=== PATIENT | female | born 1945 | race Caucasian/White ===

== ENCOUNTER 2021-03-14 13:39 | Inpatient (IN) | payer MEDICARE, MEDICAID ==
[~2021-03-14 13:39] MED LIST: Iopamidol-370 76% 500 ML 1 ML ONE
[2021-03-14 13:56] LABS: #Basophils 0.2 thou/uL (0.0-0.2); #Eosinphils 0.1 thou/uL (0.0-0.7); #Lymphocytes 0.2 thou/uL (1.20-3.40); #Monocytes 0.4 thou/uL (0.11-0.59); #Neutrophils 11.3 thou/uL (1.40-6.50); %Basophils 1.4 % (0.0-1.0); %Eosinophils 0.5 % (0.0-10.0); %Lymphocytes 1.7 % (21.0-51.0); %Monocytes 3.4 % (0.0-10.0); Hemoglobin 8.7 g/dL (12.0-16.0); Mean Corpuscular Hemoglobin 30.1 pg (27.0-31.0); Mean Corpuscular Volume 88.5 fL (78.0-98.0); Mean Platelet Volume 7.2 fL (7.4-10.4); Platelet Count 484 thou/uL (130-400); Red Blood Cell (RBC) Count 2.89 mill/uL (4.20-5.40); White Blood Cell (WBC) Count 12.2 thou/uL (4.8-10.8)
[2021-03-14 14:09] LABS: INR-International Normal Ratio 1.2; Prothrombin Time 14.8 sec (12.0-14.7)
[2021-03-14 14:10] LABS: PTT 41.5 sec (22.9-36.1)
[2021-03-14 14:13] LABS: ALT (SGPT) 37 U/L (8-55); AST (SGOT) 25 U/L (5-34); Albumin 2.8 g/dL (3.4-4.8); Alkaline Phosphatase 196 U/L (40-110); Anion Gap 12 mmol/L (10-20); BUN (Urea Nitrogen) 25 mg/dL (9.8-20.1); Bilirubin, Total 0.4 mg/dL (0.2-1.2); CK (CPK) 16 U/L (29-168); Calc. Creatinine Clearance 0 mL/min (70-130); Calcium 8.3 mg/dL (7.8-10.44); Carbon Dioxide 28 mmol/L (23-31); Chloride 95 mmol/L (98-107); Globulin 3.9 g/dL (2.4-3.5); Glucose 140 mg/dL (83-110); Protein, Total 6.7 g/dL (5.8-8.1); Sodium 130 mmol/L (136-145)
[2021-03-14 14:16] LABS: Actual Bicarbonate (HCO3a) 24.1 mEq/L (22-28); Analyzer IN Cardio ER; CO2 Tension 32.2 mmHg (35.0-45.0); Calcium, Ionized (arterial) 1.14 mmol/L (1.12-1.30); Carboxyhemoglobin (COHb) 0.3 gm% (0.0-3.0); Hemoglobin (Hb) 8.3 g/dL (12.0-16.0); O2 Tension (PaO2), arterial 71.9 mmHg (> 70.0); pH, Arterial 7.49 (7.35-7.45)
[2021-03-14] MEDS ORDERED: Fentanyl 100 MCG/2 ML VIAL ONE (14:18)
[2021-03-14] MEDS ORDERED: Fentanyl CADD 100 ML IV SCH ×2 (14:30→18:00)
[2021-03-14 14:38] LABS: Puncture Site RRA
[2021-03-14] MEDS ORDERED: EPINEPHrine 1 MG/10 ML Abboject SYRINGE ONE (14:46)
[2021-03-14] MEDS ORDERED: Norepinephrine 8 MG/0.9% NS 250 ML ONE (14:47)
[2021-03-14] MEDS ORDERED: Acetaminophen 650 MG Suppository ONE (14:58)
[2021-03-14] MEDS ORDERED: Aspirin 300 MG Suppository ONE (15:09)
[2021-03-14 15:39] LABS: SARS-CoV-2 NAA Rapid Test Not Detected (NotDetected)
[2021-03-14] MEDS ORDERED: Acetaminophen 650 MG Suppository PR PRN (16:01)
[2021-03-14] MEDS ORDERED: Ondansetron ODT 4 MG TAB PO PRN (16:01)
[2021-03-14] MEDS ORDERED: Calcium Carbonate 500 MG ChewTAB PO PRN (16:01)
[2021-03-14] MEDS ORDERED: Ondansetron PF 4 MG/2 ML Vial IVP PRN (16:01)
[2021-03-14] MEDS ORDERED: Electrolyte Replacement Protocol 1 EACH IVPB PRN (16:03)
[2021-03-14] MEDS ORDERED: Acetaminophen 325 MG/10.15 ML UDCUP PO PRN (16:03)
[2021-03-14] MEDS ORDERED: Nitroglycerin 0.4 MG TAB (25 Tab Bottle) SL PRN (16:14)
[2021-03-14] MEDS ORDERED: Dextrose 5 % And 0.9 % NaCl 1,000 ML IV SCH ×2 (16:15→16:28)
[2021-03-14] MEDS ORDERED: Meropenem 1 GM in Sodium Chloride 0.9% 100 ML IVPB SCH (16:15)
[2021-03-14] MEDS ORDERED: Vancomycin 1 GM in Premix Bag 1 BAG IVPB SCH (16:15)
[2021-03-14] MEDS ORDERED: cefTRIAXone\\ROCEPHIN 2 GM VIAL ONE (16:17)
[2021-03-14 16:20] LABS: Hemoglobin 8.3 g/dL (12.0-16.0); Mean Corpuscular Hemoglobin 29.7 pg (27.0-31.0); Mean Corpuscular Volume 89.8 fL (78.0-98.0); Mean Platelet Volume 7.3 fL (7.4-10.4); Platelet Count 511 thou/uL (130-400); RBC Distribution Width 13.1 % (11.5-14.5); Red Blood Cell (RBC) Count 2.81 mill/uL (4.20-5.40); White Blood Cell (WBC) Count 20.2 thou/uL (4.8-10.8)
[2021-03-14 16:29] LABS: INR-International Normal Ratio 1.2
[2021-03-14 16:30] LABS: PTT 47.5 sec (22.9-36.1)
[2021-03-14 16:34] LABS: Band 28 % (5-11); Lymphocytes 2 % (21-51); MDiff Complete? YES; Monocytes 1 % (0-10); Neutrophil 69 % (42-75); Platelet Morphology Comment Appears Increased; RBC Morphology Normal
[2021-03-14 16:40] LABS: Phosphorus 3.1 mg/dL (2.3-4.7)
[2021-03-14 16:44] LABS: ALT (SGPT) 49 U/L (8-55); AST (SGOT) 45 U/L (5-34); Albumin 2.6 g/dL (3.4-4.8); Alkaline Phosphatase 197 U/L (40-110); Anion Gap 10 mmol/L (10-20); BUN (Urea Nitrogen) 27 mg/dL (9.8-20.1); Bilirubin, Total 0.7 mg/dL (0.2-1.2); Calc. Creatinine Clearance 0 mL/min (70-130); Calcium 8.4 mg/dL (7.8-10.44); Carbon Dioxide 29 mmol/L (23-31); Chloride 94 mmol/L (98-107); Glucose 189 mg/dL (83-110); Magnesium 2.2 mg/dL (1.6-2.6); Protein, Total 6.6 g/dL (5.8-8.1); Sodium 128 mmol/L (136-145)
[2021-03-14] MEDS ORDERED: VANCOMYCIN 2 GRAM/400 ML BAG 2 GM in Premix Bag 1 BAG IVPB SCH (17:00)
[2021-03-14] MEDS ORDERED: Propofol 1,000 MG/100 ML VIAL IV PRN (18:00)
[2021-03-14] MEDS ORDERED: Morphine 2 MG/ML VIAL SLOW IVP PRN (18:00)
[2021-03-14] MEDS ORDERED: fentaNYL Citrate/PF 2,000 MCG in Sodium Chloride 0.9% 60 ML IV SCH (18:00)
[2021-03-14] MEDS ORDERED: Propofol BOLUS 1,000 MG/100 ML VIAL IV PRN (18:00)
[2021-03-14] MEDS ORDERED: Fentanyl BOLUS 250 ML IVPB PRN (18:00)
[2021-03-14] MEDS: Norepinephrine 8 MG/0.9% NS 250 ML IVPB PRN (18:25)
[2021-03-14] MEDS: Dextrose 5 % And 0.9 % NaCl 1,000 ML IV SCH (18:25)
[2021-03-14] MEDS: levETIRAcetam in NS 500 MG in Premix Bag 1 BAG IVPB SCH (18:25)
[2021-03-14 19:38] LABS: Troponin I 0.122 ng/mL (< 0.028)
[2021-03-14] MEDS ORDERED: Famotidine 20 MG TAB PO SCH (21:00)
[2021-03-14] MEDS: Famotidine/PF 20 mg/2ml Vial SLOW IVP SCH (21:01)
[2021-03-14] MEDS: MEROPENEM 1 GM/50 ML 1 GM in Premix Bag 1 BAG IVPB SCH (21:03)
[2021-03-14] MEDS: Acetaminophen 325 MG TAB PO PRN (21:21)
[2021-03-14] MEDS: Insulin Regular 300 UNITS/3 ML VIAL SC PRN (22:30)
[2021-03-14 23:02] LABS: Anion Gap 14 mmol/L (10-20); BUN (Urea Nitrogen) 29 mg/dL (9.8-20.1); Calc. Creatinine Clearance 56 mL/min (70-130); Calcium 8.3 mg/dL (7.8-10.44); Carbon Dioxide 24 mmol/L (23-31); Chloride 94 mmol/L (98-107); Glucose 163 mg/dL (83-110); Potassium 4.7 mmol/L (3.5-5.1); Sodium 127 mmol/L (136-145)
[2021-03-14 23:07] LABS: Troponin I 0.172 ng/mL (< 0.028)
[2021-03-14 23:09] LABS: Bilirubin Negative (Negative); Blood, Urine Large (Negative); Glucose, Urine (Dipstick) Negative (Negative); Ketone, Urine Negative (Negative); Leukocyte Moderate (Negative); Nitrite Negative (Negative); Protein, Urine (Dipstick) 30 mg/dL (Neg-Trace); Urobilinogen 0.2 mg/dL (Less than 2)
[2021-03-14 23:15] LABS: Clarity Cloudy (Clear); Specific Gravity, Urine 1.044 (1.002-1.036)
[2021-03-14 23:22] LABS: Bacteria/HPF 2+ HPF (None Seen); RBC/HPF Greater than 50 HPF (0-3); Squamous Epithelial 0-3 HPF (0-3); WBC/HPF Greater than 50 HPF (0-3)
[2021-03-15 04:11] LABS: #Lymphocytes 0.4 thou/uL (1.20-3.40); #Monocytes 0.5 thou/uL (0.11-0.59); #Neutrophils 14.4 thou/uL (1.40-6.50); %Eosinophils 0.2 % (0.0-10.0); %Lymphocytes 2.4 % (21.0-51.0); %Monocytes 3.1 % (0.0-10.0); %Neutrophils 94.3 % (42.0-75.0); Hemoglobin 7.8 g/dL (12.0-16.0); Mean Corpuscular HGB CONC 34.1 g/dL (32.0-36.0); Mean Corpuscular Volume 87.8 fL (78.0-98.0); Mean Platelet Volume 7.3 fL (7.4-10.4); Platelet Count 419 thou/uL (130-400); RBC Distribution Width 12.9 % (11.5-14.5); White Blood Cell (WBC) Count 15.2 thou/uL (4.8-10.8)
[2021-03-15] MEDS: Insulin Regular 300 UNITS/3 ML VIAL SC PRN ×4 (04:15→22:15)
[2021-03-15 04:34] LABS: Phosphorus 2.9 mg/dL (2.3-4.7)
[2021-03-15 04:36] LABS: Anion Gap 13 mmol/L (10-20); BUN (Urea Nitrogen) 31 mg/dL (9.8-20.1); Carbon Dioxide 26 mmol/L (23-31); Chloride 94 mmol/L (98-107); Potassium 4.6 mmol/L (3.5-5.1); Sodium 128 mmol/L (136-145)
[2021-03-15 04:37] LABS: ALT (SGPT) 38 U/L (8-55); AST (SGOT) 30 U/L (5-34); Albumin 2.6 g/dL (3.4-4.8); Alkaline Phosphatase 174 U/L (40-110); Bilirubin, Total 0.4 mg/dL (0.2-1.2); Calc. Creatinine Clearance 49 mL/min (70-130); Calcium 8.6 mg/dL (7.8-10.44); Globulin 3.6 g/dL (2.4-3.5); Glucose 144 mg/dL (83-110); Magnesium 2.2 mg/dL (1.6-2.6); Protein, Total 6.2 g/dL (5.8-8.1)
[2021-03-15] MEDS: Dextrose 5 % And 0.9 % NaCl 1,000 ML IV SCH (04:41)
[2021-03-15] MEDS: levETIRAcetam in NS 500 MG in Premix Bag 1 BAG IVPB SCH ×2 (04:46→18:17)
[2021-03-15] MEDS: VANCOMYCIN 1.25 GM/250 ML BAG 1.25 GM in Premix Bag 1 BAG IVPB SCH ×2 (05:15→17:15)
[2021-03-15] MEDS: MEROPENEM 1 GM/50 ML 1 GM in Premix Bag 1 BAG IVPB SCH ×3 (05:32→21:49)
[2021-03-15] MEDS: Lorazepam 2 MG/ML VIAL SLOW IVP PRN ×3 (08:35→19:55)
[2021-03-15] MEDS: Acetaminophen 325 MG TAB PO PRN (08:45)
[2021-03-15] MEDS: Famotidine/PF 20 mg/2ml Vial SLOW IVP SCH ×2 (08:45→20:18)
[2021-03-15] MEDS: Enoxaparin Sodium 40 MG/0.4 ML SYRINGE SC SCH (08:45)
[2021-03-15] MEDS: Aspirin Chewable 81 MG TAB PER TUBE SCH (08:45)
[2021-03-15] MEDS: Norepinephrine 8 MG/0.9% NS 250 ML IVPB PRN (20:18)
[2021-03-16] MEDS: Vancomycin HCl 1.25 GM in Sodium Chloride 0.9% 250 ML 250 ML IVPB SCH ×2 (04:25→05:43)
[2021-03-16 04:54] LABS: #Lymphocytes 0.6 thou/uL (1.20-3.40); #Monocytes 0.5 thou/uL (0.11-0.59); #Neutrophils 9.5 thou/uL (1.40-6.50); %Basophils 0.1 % (0.0-1.0); %Eosinophils 0.2 % (0.0-10.0); %Lymphocytes 5.7 % (21.0-51.0); %Monocytes 4.2 % (0.0-10.0); %Neutrophils 89.8 % (42.0-75.0); Hemoglobin 7.1 g/dL (12.0-16.0); Mean Corpuscular HGB CONC 33.7 g/dL (32.0-36.0); Mean Corpuscular Hemoglobin 29.5 pg (27.0-31.0); Mean Corpuscular Volume 87.6 fL (78.0-98.0); Mean Platelet Volume 7.5 fL (7.4-10.4); Platelet Count 303 thou/uL (130-400); RBC Distribution Width 12.9 % (11.5-14.5); White Blood Cell (WBC) Count 10.5 thou/uL (4.8-10.8)
[2021-03-16] MEDS: Insulin Regular 300 UNITS/3 ML VIAL SC PRN ×3 (05:00→18:17)
[2021-03-16 05:13] LABS: Phosphorus 2.6 mg/dL (2.3-4.7)
[2021-03-16 05:16] LABS: Chloride 98 mmol/L (98-107); Potassium 4.1 mmol/L (3.5-5.1); Sodium 132 mmol/L (136-145)
[2021-03-16 05:17] LABS: Vancomycin, Trough 48.5 ug/mL
[2021-03-16 05:18] LABS: Albumin 2.4 g/dL (3.4-4.8)
[2021-03-16 05:20] LABS: Calcium 8.1 mg/dL (7.8-10.44)
[2021-03-16 05:21] LABS: Globulin 3.5 g/dL (2.4-3.5); Glucose 167 mg/dL (83-110); Protein, Total 5.9 g/dL (5.8-8.1)
[2021-03-16 05:22] LABS: Anion Gap 12 mmol/L (10-20); Carbon Dioxide 25 mmol/L (23-31)
[2021-03-16 05:23] LABS: Bilirubin, Total 0.3 mg/dL (0.2-1.2)
[2021-03-16 05:24] LABS: Alkaline Phosphatase 160 U/L (40-110); Calc. Creatinine Clearance 35 mL/min (70-130)
[2021-03-16 05:25] LABS: BUN (Urea Nitrogen) 42 mg/dL (9.8-20.1)
[2021-03-16 05:26] LABS: AST (SGOT) 38 U/L (5-34); Magnesium 2.3 mg/dL (1.6-2.6)
[2021-03-16 05:27] LABS: ALT (SGPT) 39 U/L (8-55)
[2021-03-16] MEDS ORDERED: Vancomycin HCl 1.25 GM in Sodium Chloride 0.9% 250 ML 250 ML IVPB SCH (05:30)
[2021-03-16] MEDS: MEROPENEM 1 GM/50 ML 1 GM in Premix Bag 1 BAG IVPB SCH (05:44)
[2021-03-16] MEDS: levETIRAcetam in NS 500 MG in Premix Bag 1 BAG IVPB SCH ×2 (05:44→17:09)
[2021-03-16 06:52] LABS: Actual Bicarbonate (HCO3a) 24.1 mEq/L (22-28); Base Excess (BEa) 0.9 mEq/L (-2.0 to +3.0); Calcium, Ionized (arterial) 1.11 mmol/L (1.12-1.30); Carboxyhemoglobin (COHb) 0.9 gm% (0.0-3.0); Hemoglobin (Hb) 7.5 g/dL (12.0-16.0); O2 Tension (PaO2), arterial 70.2 mmHg (> 70.0); pH, Arterial 7.49 (7.35-7.45)
[2021-03-16 06:56] LABS: Puncture Site RRA
[2021-03-16] MEDS: Acetaminophen 325 MG TAB PO PRN ×2 (07:15→16:19)
[2021-03-16] MEDS: Aspirin Chewable 81 MG TAB PER TUBE SCH (09:51)
[2021-03-16] MEDS: Enoxaparin Sodium 40 MG/0.4 ML SYRINGE SC SCH (09:51)
[2021-03-16] MEDS: Famotidine/PF 20 mg/2ml Vial SLOW IVP SCH ×2 (09:51→16:20)
[2021-03-16] MEDS: Enoxaparin Sodium 30 MG/0.3 ML SYRINGE SC SCH (09:54)
[2021-03-16] MEDS: Lorazepam 2 MG/ML VIAL SLOW IVP PRN ×2 (13:20→23:55)
[2021-03-16] MEDS: Meropenem 500 MG in Sodium Chloride 0.9% 100 ML IVPB SCH (18:35)
[2021-03-17 00:52] LABS: Vancomycin, Random 31.6 ug/mL (See Comment)
[2021-03-17 04:15] LABS: #Eosinphils 0.1 thou/uL (0.0-0.7); #Lymphocytes 0.5 thou/uL (1.20-3.40); #Monocytes 0.4 thou/uL (0.11-0.59); #Neutrophils 9.4 thou/uL (1.40-6.50); %Basophils 0.2 % (0.0-1.0); %Eosinophils 0.5 % (0.0-10.0); %Lymphocytes 4.6 % (21.0-51.0); %Monocytes 4.1 % (0.0-10.0); %Neutrophils 90.6 % (42.0-75.0); Mean Corpuscular HGB CONC 32.8 g/dL (32.0-36.0); Mean Corpuscular Volume 88.5 fL (78.0-98.0); Mean Platelet Volume 8.1 fL (7.4-10.4); Platelet Count 251 thou/uL (130-400); RBC Distribution Width 13.4 % (11.5-14.5); Red Blood Cell (RBC) Count 2.42 mill/uL (4.20-5.40); White Blood Cell (WBC) Count 10.4 thou/uL (4.8-10.8)
[2021-03-17 04:36] LABS: ALT (SGPT) 77 U/L (8-55); AST (SGOT) 106 U/L (5-34); Albumin 2.4 g/dL (3.4-4.8); Alkaline Phosphatase 162 U/L (40-110); Anion Gap 13 mmol/L (10-20); BUN (Urea Nitrogen) 51 mg/dL (9.8-20.1); Bilirubin, Total 0.3 mg/dL (0.2-1.2); Calc. Creatinine Clearance 30 mL/min (70-130); Calcium 8.5 mg/dL (7.8-10.44); Carbon Dioxide 24 mmol/L (23-31); Chloride 98 mmol/L (98-107); Globulin 3.5 g/dL (2.4-3.5); Glucose 163 mg/dL (83-110); Magnesium 2.4 mg/dL (1.6-2.6); Protein, Total 5.9 g/dL (5.8-8.1); Sodium 131 mmol/L (136-145)
[2021-03-17 04:39] LABS: Phosphorus 3.8 mg/dL (2.3-4.7)
[2021-03-17] MEDS: levETIRAcetam in NS 500 MG in Premix Bag 1 BAG IVPB SCH ×2 (05:34→17:45)
[2021-03-17] MEDS: Meropenem 500 MG in Sodium Chloride 0.9% 100 ML IVPB SCH ×2 (05:34→17:57)
[2021-03-17] MEDS: Insulin Regular 300 UNITS/3 ML VIAL SC PRN ×2 (05:55→09:53)
[2021-03-17 07:30] LABS: Actual Bicarbonate (HCO3a) 24.3 mEq/L (22-28); Base Excess (BEa) 0.2 mEq/L (-2.0 to +3.0); CO2 Tension 36.7 mmHg (35.0-45.0); Calcium, Ionized (arterial) 1.16 mmol/L (1.12-1.30); Carboxyhemoglobin (COHb) 0.9 gm% (0.0-3.0); Hemoglobin (Hb) 7.1 g/dL (12.0-16.0); O2 Tension (PaO2), arterial 66.7 mmHg (> 70.0); Potassium - ABG Lab 4.02 mmol/L (3.70-5.30); pH, Arterial 7.44 (7.35-7.45)
[2021-03-17 07:32] LABS: ALV-art Gradient 101.325 mmHg (0-20); Puncture Site RRA
[2021-03-17] MEDS: Lorazepam 2 MG/ML VIAL SLOW IVP PRN (07:44)
[2021-03-17] MEDS: Enoxaparin Sodium 30 MG/0.3 ML SYRINGE SC SCH (07:45)
[2021-03-17] MEDS: Aspirin Chewable 81 MG TAB PER TUBE SCH (07:45)
[2021-03-17] MEDS ORDERED: Famotidine 20 MG TAB PER TUBE SCH (10:00)
[2021-03-17] MEDS: Famotidine/PF 20 mg/2ml Vial SLOW IVP SCH (19:46)
[2021-03-17 21:56] LABS: Vancomycin, Random 24.7 ug/mL (See Comment)
[2021-03-18 04:23] LABS: #Eosinphils 0.2 thou/uL (0.0-0.7); #Lymphocytes 0.6 thou/uL (1.20-3.40); #Monocytes 0.5 thou/uL (0.11-0.59); #Neutrophils 7.3 thou/uL (1.40-6.50); %Eosinophils 1.8 % (0.0-10.0); %Lymphocytes 6.6 % (21.0-51.0); %Monocytes 5.9 % (0.0-10.0); %Neutrophils 85.7 % (42.0-75.0); Hemoglobin 7.6 g/dL (12.0-16.0); Mean Corpuscular Hemoglobin 29.9 pg (27.0-31.0); Mean Platelet Volume 8.2 fL (7.4-10.4); Platelet Count 244 thou/uL (130-400); RBC Distribution Width 13.2 % (11.5-14.5); Red Blood Cell (RBC) Count 2.54 mill/uL (4.20-5.40); White Blood Cell (WBC) Count 8.5 thou/uL (4.8-10.8)
[2021-03-18 04:42] LABS: ALT (SGPT) 111 U/L (8-55); AST (SGOT) 131 U/L (5-34); Albumin 2.3 g/dL (3.4-4.8); Alkaline Phosphatase 164 U/L (40-110); Anion Gap 13 mmol/L (10-20); BUN (Urea Nitrogen) 52 mg/dL (9.8-20.1); Bilirubin, Total 0.3 mg/dL (0.2-1.2); Calc. Creatinine Clearance 35 mL/min (70-130); Calcium 8.5 mg/dL (7.8-10.44); Carbon Dioxide 24 mmol/L (23-31); Chloride 102 mmol/L (98-107); Globulin 3.6 g/dL (2.4-3.5); Glucose 134 mg/dL (83-110); Magnesium 2.5 mg/dL (1.6-2.6); Phosphorus 3.8 mg/dL (2.3-4.7); Potassium 4.1 mmol/L (3.5-5.1); Protein, Total 5.9 g/dL (5.8-8.1); Sodium 135 mmol/L (136-145)
[2021-03-18] MEDS: Lorazepam 2 MG/ML VIAL SLOW IVP PRN (04:58)
[2021-03-18] MEDS: levETIRAcetam in NS 500 MG in Premix Bag 1 BAG IVPB SCH ×2 (04:58→17:55)
[2021-03-18] MEDS: Meropenem 500 MG in Sodium Chloride 0.9% 100 ML IVPB SCH ×2 (05:41→17:55)
[2021-03-18] MEDS: Enoxaparin Sodium 30 MG/0.3 ML SYRINGE SC SCH (08:53)
[2021-03-18] MEDS: Famotidine 20 MG TAB PER TUBE SCH (08:53)
[2021-03-18] MEDS: Aspirin Chewable 81 MG TAB PER TUBE SCH (08:53)
[2021-03-18] MEDS: Acetaminophen 325 MG TAB PO PRN (15:39)
[2021-03-18] MEDS: Acetaminophen 650 MG/20.3 ML UDCUP PO PRN (23:29)
[2021-03-19] MEDS: levETIRAcetam in NS 500 MG in Premix Bag 1 BAG IVPB SCH ×2 (05:31→17:27)
[2021-03-19] MEDS: Meropenem 500 MG in Sodium Chloride 0.9% 100 ML IVPB SCH ×2 (05:48→18:45)
[2021-03-19 06:12] LABS: #Lymphocytes 0.5 thou/uL (1.20-3.40); #Monocytes 0.6 thou/uL (0.11-0.59); #Neutrophils 11.3 thou/uL (1.40-6.50); %Basophils 0.1 % (0.0-1.0); %Eosinophils 0.2 % (0.0-10.0); %Lymphocytes 4.1 % (21.0-51.0); %Monocytes 5.1 % (0.0-10.0); %Neutrophils 90.6 % (42.0-75.0); Hemoglobin 7.8 g/dL (12.0-16.0); Mean Corpuscular HGB CONC 32.8 g/dL (32.0-36.0); Mean Corpuscular Hemoglobin 28.8 pg (27.0-31.0); Mean Corpuscular Volume 87.7 fL (78.0-98.0); Mean Platelet Volume 8.5 fL (7.4-10.4); Platelet Count 268 thou/uL (130-400); RBC Distribution Width 13.8 % (11.5-14.5); Red Blood Cell (RBC) Count 2.69 mill/uL (4.20-5.40); White Blood Cell (WBC) Count 12.5 thou/uL (4.8-10.8)
[2021-03-19 06:38] LABS: ALT (SGPT) 102 U/L (8-55); AST (SGOT) 91 U/L (5-34); Albumin 2.4 g/dL (3.4-4.8); Alkaline Phosphatase 167 U/L (40-110); Anion Gap 13 mmol/L (10-20); BUN (Urea Nitrogen) 47 mg/dL (9.8-20.1); Bilirubin, Total 0.5 mg/dL (0.2-1.2); Calc. Creatinine Clearance 43 mL/min (70-130); Calcium 8.5 mg/dL (7.8-10.44); Carbon Dioxide 23 mmol/L (23-31); Chloride 106 mmol/L (98-107); Globulin 3.6 g/dL (2.4-3.5); Glucose 164 mg/dL (83-110); Magnesium 2.5 mg/dL (1.6-2.6); Potassium 4.2 mmol/L (3.5-5.1); Sodium 138 mmol/L (136-145)
[2021-03-19] MEDS: Aspirin Chewable 81 MG TAB PER TUBE SCH (09:27)
[2021-03-19] MEDS: Enoxaparin Sodium 30 MG/0.3 ML SYRINGE SC SCH (09:27)
[2021-03-19] MEDS: Famotidine 20 MG TAB PER TUBE SCH (09:27)
[2021-03-19] MEDS: Acetaminophen 650 MG/20.3 ML UDCUP PO PRN ×2 (10:06→15:03)
[2021-03-19 10:20] LABS: Vancomycin, Random 18.4 ug/mL (See Comment)
[2021-03-19 11:31] LABS: Actual Bicarbonate (HCO3a) 25.2 mEq/L (22-28); Base Excess (BEa) 1.3 mEq/L (-2.0 to +3.0); CO2 Tension 36.3 mmHg (35.0-45.0); Calcium, Ionized (arterial) 1.19 mmol/L (1.12-1.30); Carboxyhemoglobin (COHb) 1.3 gm% (0.0-3.0); Hemoglobin (Hb) 6.3 g/dL (12.0-16.0); O2 Tension (PaO2), arterial 75.2 mmHg (> 70.0); Potassium - ABG Lab 4.11 mmol/L (3.70-5.30); pH, Arterial 7.46 (7.35-7.45)
[2021-03-19 11:42] LABS: ALV-art Gradient 79.065 mmHg (0-20); Puncture Site RRA
[2021-03-19] MEDS ORDERED: Vancomycin 1 GM in Premix Bag 1 BAG IVPB SCH (11:45)
[2021-03-20] MEDS: levETIRAcetam in NS 500 MG in Premix Bag 1 BAG IVPB SCH (05:05)
[2021-03-20] MEDS: Acetaminophen 650 MG/20.3 ML UDCUP PO PRN ×2 (05:05→22:00)
[2021-03-20] MEDS: Meropenem 500 MG in Sodium Chloride 0.9% 100 ML IVPB SCH ×2 (05:42→18:25)
[2021-03-20] MEDS: Famotidine 20 MG TAB PER TUBE SCH (08:45)
[2021-03-20] MEDS: Enoxaparin Sodium 30 MG/0.3 ML SYRINGE SC SCH (08:45)
[2021-03-20] MEDS: Aspirin Chewable 81 MG TAB PER TUBE SCH (08:45)
[2021-03-20] MEDS ORDERED: Furosemide 100 MG/10 ML VIAL SLOW IVP SCH (11:00)
[2021-03-20 11:08] LABS: Vancomycin, Random 19.1 ug/mL (See Comment)
[2021-03-20] MEDS ORDERED: Vancomycin 1 GM in Premix Bag 1 BAG IVPB SCH (12:00)
[2021-03-20 18:35] LABS: Clarity Hazy (Clear)
[2021-03-20 18:36] LABS: Bilirubin Negative (Negative); Glucose, Urine (Dipstick) 100 mg/dL (Negative); Ketone, Urine Negative (Negative); Leukocyte Small Leu/uL (Negative); Nitrite Negative (Negative); Protein, Urine (Dipstick) 30 mg/dL (Neg-Trace); Urobilinogen 0.2 mg/dL (Less than 2); pH, Urine 5.5 (5.0-9.0)
[2021-03-20 18:37] LABS: Blood, Urine Moderate (Negative)
[2021-03-20 18:38] LABS: Bacteria/HPF 1+ HPF (None Seen)
[2021-03-20] MEDS: Carvedilol 6.25 MG TAB PO SCH (22:00)
[2021-03-20] MEDS: Furosemide 40 MG TAB PO SCH (22:00)
[2021-03-20] MEDS: OXcarbazepine 300 MG TAB PO SCH (22:01)
[2021-03-21] MEDS: Furosemide 40 MG TAB PO SCH ×2 (09:13→20:47)
[2021-03-21] MEDS: Aspirin Chewable 81 MG TAB PER TUBE SCH (09:13)
[2021-03-21] MEDS: Famotidine 20 MG TAB PER TUBE SCH (09:13)
[2021-03-21] MEDS: Carvedilol 6.25 MG TAB PO SCH ×2 (09:14→20:47)
[2021-03-21] MEDS: Bisacodyl 10 MG SUPP PR SCH (09:14)
[2021-03-21] MEDS: Enoxaparin Sodium 30 MG/0.3 ML SYRINGE SC SCH (09:14)
[2021-03-21] MEDS: Meropenem 500 MG in Sodium Chloride 0.9% 100 ML IVPB SCH ×2 (09:14→17:12)
[2021-03-21 10:40] LABS: Vancomycin, Trough 15.8 ug/mL
[2021-03-21] MEDS: Acetaminophen 650 MG/20.3 ML UDCUP PO PRN ×2 (10:46→20:57)
[2021-03-21 10:47] LABS: #Basophils 0.1 thou/uL (0.0-0.2); #Lymphocytes 0.3 thou/uL (1.20-3.40); #Monocytes 0.5 thou/uL (0.11-0.59); #Neutrophils 10.8 thou/uL (1.40-6.50); %Basophils 0.9 % (0.0-1.0); %Eosinophils 0.1 % (0.0-10.0); %Lymphocytes 2.8 % (21.0-51.0); %Monocytes 4.1 % (0.0-10.0); %Neutrophils 92.1 % (42.0-75.0); Hemoglobin 8.2 g/dL (12.0-16.0); Mean Corpuscular Hemoglobin 29.2 pg (27.0-31.0); Mean Corpuscular Volume 88.5 fL (78.0-98.0); Mean Platelet Volume 9.6 fL (7.4-10.4); Platelet Count 202 thou/uL (130-400); RBC Distribution Width 14.5 % (11.5-14.5); White Blood Cell (WBC) Count 11.7 thou/uL (4.8-10.8)
[2021-03-21 11:06] LABS: Anion Gap 13 mmol/L (10-20); BUN (Urea Nitrogen) 51 mg/dL (9.8-20.1); Calc. Creatinine Clearance 51 mL/min (70-130); Calcium 8.9 mg/dL (7.8-10.44); Carbon Dioxide 25 mmol/L (23-31); Chloride 111 mmol/L (98-107); Glucose 215 mg/dL (83-110); Sodium 145 mmol/L (136-145)
[2021-03-21] MEDS ORDERED: Vancomycin HCl 750 MG in Sodium Chloride 0.9% 250 ML 250 ML IVPB SCH (11:15)
[2021-03-21] MEDS: Insulin Regular 300 UNITS/3 ML VIAL SC PRN (13:24)
[2021-03-21 13:58] LABS: Bacteria/HPF 4+ HPF (None Seen); Bilirubin Negative (Negative); Blood, Urine 3+ (Negative); Clarity Extra Turbid (Clear); Glucose, Urine (Dipstick) Normal (Negative); Ketone, Urine Negative (Negative); Leukocyte 500 Leu/uL (Negative); Nitrite Negative (Negative); Protein, Urine (Dipstick) 100 mg/dL (Neg-Trace); RBC/HPF Greater than 50 HPF (0-3); Renal Epithelial 0-3 HPF (None Seen); Specific Gravity, Urine 1.016 (1.002-1.036); Squamous Epithelial None Seen HPF (0-3); Urobilinogen Normal mg/dL (Less than 2); WBC/HPF Greater than 50 HPF (0-3)
[2021-03-21 14:01] LABS: Urine Culture Reflex Yes Yes
[2021-03-21] MEDS: Furosemide 40 MG/4 ML VIAL SLOW IVP SCH (14:33)
[2021-03-21] MEDS: OXcarbazepine 300 MG TAB PO SCH (20:47)
[2021-03-21 23:19] LABS: SARS-CoV-2 PCR by NAA Not Detected (NotDetected)
[2021-03-22] MEDS: Meropenem 500 MG in Sodium Chloride 0.9% 100 ML IVPB SCH (05:17)
[2021-03-22] MEDS: Furosemide 40 MG/4 ML VIAL SLOW IVP SCH ×3 (05:18→15:58)
[2021-03-22 05:47] LABS: #Eosinphils 0.1 thou/uL (0.0-0.7); #Lymphocytes 0.8 thou/uL (1.20-3.40); #Monocytes 0.8 thou/uL (0.11-0.59); #Neutrophils 7.4 thou/uL (1.40-6.50); %Basophils 0.2 % (0.0-1.0); %Eosinophils 0.9 % (0.0-10.0); %Monocytes 8.9 % (0.0-10.0); Hemoglobin 6.9 g/dL (12.0-16.0); Mean Corpuscular HGB CONC 31.7 g/dL (32.0-36.0); Mean Corpuscular Hemoglobin 28.2 pg (27.0-31.0); Mean Corpuscular Volume 88.9 fL (78.0-98.0); Mean Platelet Volume 9.5 fL (7.4-10.4); Platelet Count 198 thou/uL (130-400); RBC Distribution Width 14.3 % (11.5-14.5); Red Blood Cell (RBC) Count 2.45 mill/uL (4.20-5.40); White Blood Cell (WBC) Count 9.2 thou/uL (4.8-10.8)
[2021-03-22 06:07] LABS: Anion Gap 10 mmol/L (10-20); BUN (Urea Nitrogen) 64 mg/dL (9.8-20.1); CRP (Inflammatory) 13.33 mg/dL (= or < 0.5); Calc. Creatinine Clearance 56 mL/min (70-130); Calcium 8.7 mg/dL (7.8-10.44); Carbon Dioxide 30 mmol/L (23-31); Chloride 109 mmol/L (98-107); Glucose 154 mg/dL (83-110); Potassium 3.1 mmol/L (3.5-5.1); Sodium 146 mmol/L (136-145)
[2021-03-22] MEDS ORDERED: Potassium Chloride 20 MEQ TAB PO SCH (06:30)
[2021-03-22] MEDS ORDERED: Potassium Chloride 20 MEQ TAB PER TUBE SCH (06:45)
[2021-03-22 07:58] LABS: Magnesium 2.2 mg/dL (1.6-2.6)
[2021-03-22] MEDS: Famotidine 20 MG TAB PER TUBE SCH (08:00)
[2021-03-22] MEDS: Aspirin Chewable 81 MG TAB PER TUBE SCH (08:00)
[2021-03-22] MEDS: Furosemide 40 MG TAB PO SCH ×2 (08:00→21:35)
[2021-03-22] MEDS: Carvedilol 6.25 MG TAB PO SCH ×2 (08:00→21:35)
[2021-03-22] MEDS: Bisacodyl 10 MG SUPP PR SCH (08:00)
[2021-03-22] MEDS: Enoxaparin Sodium 30 MG/0.3 ML SYRINGE SC SCH (08:01)
[2021-03-22 10:58] LABS: Vancomycin, Random 17.1 ug/mL (See Comment)
[2021-03-22] MEDS ORDERED: Vancomycin HCl 750 MG in Sodium Chloride 0.9% 250 ML 250 ML IVPB SCH (11:30)
[2021-03-22] MEDS ORDERED: Iothalamate Meglumine 60% 50 ML VIAL FS ONE ×2 (13:30→13:45)
[2021-03-22] MEDS ORDERED: Fentanyl 100 MCG/2 ML VIAL ONE ×2 (13:50→14:11)
[2021-03-22] MEDS ORDERED: Midazolam HCl 2 mg/2 ml Vial ONE (14:10)
[2021-03-22] MEDS ORDERED: Ketamine 50 MG/ML (10ML VIAL) ONE (14:10)
[2021-03-22] MEDS ORDERED: Meropenem 1,000 MG in Sodium Chloride 0.9% 100 ML IVPB SCH (14:24)
[2021-03-22 15:21] LABS: Clarity Cloudy (Clear)
[2021-03-22 15:23] LABS: Bilirubin Unable to Interpret (Negative); Blood, Urine Unable to Interpret (Negative); Glucose, Urine (Dipstick) Unable to Interpret mg/dL (Negative); Ketone, Urine Unable to Interpret mg/dL (Negative); Leukocyte Unable to Interpret Leu/uL (Negative); Nitrite Unable to Interpret (Negative); Protein, Urine (Dipstick) Unable to Interpret mg/dL (Neg-Trace); Urobilinogen UNABLE TO INTERPRET mg/dL (Less than 2); pH, Urine 6.5 (5.0-9.0)
[2021-03-22 15:24] LABS: Bacteria/HPF 2+ HPF (None Seen); Squamous Epithelial None Seen HPF (0-3); WBC/HPF Greater than 50 HPF (0-3)
[2021-03-22] MEDS: Acetaminophen 650 MG/20.3 ML UDCUP PO PRN ×2 (16:10→21:48)
[2021-03-22] MEDS: levETIRAcetam in NS 500 MG in Premix Bag 1 BAG IVPB SCH (16:53)
[2021-03-22] MEDS: MEROPENEM 1 GM/50 ML 1 GM in Premix Bag 1 BAG IVPB SCH (17:26)
[2021-03-22] MEDS: OXcarbazepine 300 MG TAB PO SCH (21:47)
[2021-03-23] MEDS: levETIRAcetam in NS 500 MG in Premix Bag 1 BAG IVPB SCH (05:00)
[2021-03-23] MEDS: Furosemide 40 MG/4 ML VIAL SLOW IVP SCH (05:16)
[2021-03-23] MEDS: MEROPENEM 1 GM/50 ML 1 GM in Premix Bag 1 BAG IVPB SCH ×2 (05:35→21:33)
[2021-03-23 07:37] LABS: #Eosinphils 0.2 thou/uL (0.0-0.7); #Monocytes 0.5 thou/uL (0.11-0.59); #Neutrophils 10.5 thou/uL (1.40-6.50); %Basophils 0.2 % (0.0-1.0); %Eosinophils 1.3 % (0.0-10.0); %Lymphocytes 7.8 % (21.0-51.0); %Neutrophils 86.7 % (42.0-75.0); Hemoglobin 7.7 g/dL (12.0-16.0); Mean Corpuscular HGB CONC 34.8 g/dL (32.0-36.0); Mean Corpuscular Hemoglobin 30.9 pg (27.0-31.0); Mean Corpuscular Volume 88.6 fL (78.0-98.0); Mean Platelet Volume 10.3 fL (7.4-10.4); Platelet Count 196 thou/uL (130-400); RBC Distribution Width 14.4 % (11.5-14.5); Red Blood Cell (RBC) Count 2.49 mill/uL (4.20-5.40); White Blood Cell (WBC) Count 12.1 thou/uL (4.8-10.8)
[2021-03-23 07:55] LABS: Anion Gap 10 mmol/L (10-20); BUN (Urea Nitrogen) 68 mg/dL (9.8-20.1); Calc. Creatinine Clearance 63 mL/min (70-130); Calcium 9.2 mg/dL (7.8-10.44); Carbon Dioxide 34 mmol/L (23-31); Chloride 111 mmol/L (98-107); Glucose 154 mg/dL (83-110); Potassium 3.1 mmol/L (3.5-5.1); Sodium 152 mmol/L (136-145)
[2021-03-23] MEDS ORDERED: Magnesium 2 GM/50 ML 2 GM in Premix Bag 1 BAG IVPB SCH (08:45)
[2021-03-23] MEDS ORDERED: Potassium Chloride 40 MEQ in Sodium Chloride 0.9% 250 ML 250 ML IVPB SCH (08:45)
[2021-03-23] MEDS: Acetaminophen 650 MG/20.3 ML UDCUP PO PRN ×2 (11:06→16:33)
[2021-03-23] MEDS: Carvedilol 6.25 MG TAB PO SCH ×2 (11:07→22:03)
[2021-03-23] MEDS: Aspirin Chewable 81 MG TAB PER TUBE SCH (11:07)
[2021-03-23] MEDS: Furosemide 40 MG TAB PO SCH (11:08)
[2021-03-23] MEDS: Famotidine 20 MG TAB PER TUBE SCH (11:08)
[2021-03-23] MEDS: Bisacodyl 10 MG SUPP PR SCH (11:08)
[2021-03-23] MEDS ORDERED: Dextrose 5% w/ 20 mEq KCl 1,000 ML IV SCH ×3 (11:45→18:47)
[2021-03-23 12:32] LABS: Vancomycin, Random 17.3 ug/mL (See Comment)
[2021-03-23 13:05] VITALS: BMI 33.2
[2021-03-23] MEDS: Enoxaparin Sodium 30 MG/0.3 ML SYRINGE SC SCH (13:23)
[2021-03-23] MEDS: Vancomycin HCl 750 MG in Sodium Chloride 0.9% 250 ML 250 ML IVPB SCH (16:34)
[2021-03-23 19:37] LABS: Anion Gap 13 mmol/L (10-20); BUN (Urea Nitrogen) 75 mg/dL (9.8-20.1); Calc. Creatinine Clearance 66 mL/min (70-130); Calcium 9.2 mg/dL (7.8-10.44); Carbon Dioxide 31 mmol/L (23-31); Chloride 113 mmol/L (98-107); Glucose 132 mg/dL (83-110); Potassium 3.6 mmol/L (3.5-5.1); Sodium 153 mmol/L (136-145)
[2021-03-23] MEDS ORDERED: levETIRAcetam 500 MG TAB PER TUBE SCH (21:00)
[2021-03-23] MEDS: Dextrose 5% w/ 20 mEq KCl 1,000 ML IV SCH (21:34)
[2021-03-23] MEDS: OXcarbazepine 300 MG TAB PO SCH (22:03)
[2021-03-24] MEDS ORDERED: hydrALAZINE 20 MG/ML VIAL SLOW IVP PRN (05:18)
[2021-03-24 08:11] LABS: #Eosinphils 0.1 thou/uL (0.0-0.7); #Lymphocytes 0.9 thou/uL (1.20-3.40); #Monocytes 0.5 thou/uL (0.11-0.59); #Neutrophils 10.3 thou/uL (1.40-6.50); %Basophils 0.1 % (0.0-1.0); %Eosinophils 0.5 % (0.0-10.0); %Lymphocytes 7.5 % (21.0-51.0); %Monocytes 4.5 % (0.0-10.0); %Neutrophils 87.4 % (42.0-75.0); Hemoglobin 7.1 g/dL (12.0-16.0); Mean Corpuscular HGB CONC 32.1 g/dL (32.0-36.0); Mean Corpuscular Hemoglobin 28.6 pg (27.0-31.0); Platelet Count 253 thou/uL (130-400); RBC Distribution Width 14.6 % (11.5-14.5); Red Blood Cell (RBC) Count 2.48 mill/uL (4.20-5.40); White Blood Cell (WBC) Count 11.8 thou/uL (4.8-10.8)
[2021-03-24] MEDS: Aspirin Chewable 81 MG TAB PER TUBE SCH (08:30)
[2021-03-24] MEDS: Carvedilol 6.25 MG TAB PO SCH ×2 (08:31→20:49)
[2021-03-24] MEDS: Famotidine 20 MG TAB PER TUBE SCH (08:31)
[2021-03-24] MEDS: MEROPENEM 1 GM/50 ML 1 GM in Premix Bag 1 BAG IVPB SCH ×2 (08:32→20:49)
[2021-03-24 08:33] LABS: Anion Gap 12 mmol/L (10-20); BUN (Urea Nitrogen) 79 mg/dL (9.8-20.1); Calc. Creatinine Clearance 66 mL/min (70-130); Calcium 9.2 mg/dL (7.8-10.44); Carbon Dioxide 31 mmol/L (23-31); Chloride 114 mmol/L (98-107); Glucose 175 mg/dL (83-110); Iron 51 ug/dL (50-170); Iron Binding Capacity, Total 151 mcg/dL (265-497); Potassium 3.7 mmol/L (3.5-5.1); Sodium 153 mmol/L (136-145)
[2021-03-24 08:38] LABS: Magnesium 2.3 mg/dL (1.6-2.6)
[2021-03-24 08:41] LABS: Ferritin 562.93 ng/mL (10-291); Thyroid Stimulating Hormone 2.8441 uIU/mL (0.35-4.94)
[2021-03-24] MEDS ORDERED: Enoxaparin Sodium 40 MG/0.4 ML SYRINGE SC SCH (09:00)
[2021-03-24] MEDS ORDERED: Dextrose 5% w/ 20 mEq KCl 1,000 ML IV SCH ×2 (11:44→13:14)
[2021-03-24] MEDS ORDERED: Folic Acid 1 MG TAB PER TUBE SCH (11:45)
[2021-03-24] MEDS: Acetaminophen 650 MG/20.3 ML UDCUP PO PRN (12:07)
[2021-03-24] MEDS ORDERED: Dextrose 5% in Water 1,000 ML IV SCH ×2 (13:30→18:38)
[2021-03-24] MEDS: Dextrose 5% w/ 20 mEq KCl 1,000 ML IV SCH (13:58)
[2021-03-24] MEDS: levETIRAcetam 500 mg/5 ml Oral Solution PER TUBE SCH ×2 (14:25→20:49)
[2021-03-24] MEDS: Acetaminophen 500 MG TAB PER TUBE SCH ×2 (16:29→20:44)
[2021-03-24] MEDS: Vancomycin HCl 750 MG in Sodium Chloride 0.9% 250 ML 250 ML IVPB SCH (16:30)
[2021-03-24] MEDS: Bisacodyl 10 MG SUPP PR SCH (16:39)
[2021-03-24 18:00] LABS: Anion Gap 16 mmol/L (10-20); BUN (Urea Nitrogen) 94 mg/dL (9.8-20.1); Calc. Creatinine Clearance 67 mL/min (70-130); Carbon Dioxide 26 mmol/L (23-31); Chloride 117 mmol/L (98-107); Glucose 176 mg/dL (83-110); Potassium 3.7 mmol/L (3.5-5.1); Sodium 155 mmol/L (136-145)
[2021-03-24 19:41] VITALS: TEMP 100.3
[2021-03-24] MEDS: OXcarbazepine 300 MG TAB PO SCH (20:49)
[2021-03-24 20:50] VITALS: BP 136/77
[2021-03-24] MEDS ORDERED: Morphine 2 MG/ML VIAL SLOW IVP SCH (22:24)
[2021-03-24] MEDS ORDERED: Lorazepam 2 MG/ML VIAL SLOW IVP PRN (22:25)
[2021-03-24] MEDS ORDERED: Morphine 2 MG/ML VIAL SLOW IVP PRN (22:25)
[2021-03-25] MEDS: Acetaminophen 500 MG TAB PER TUBE SCH (01:22)
[2021-03-25] MEDS ORDERED: Folic Acid 1 MG TAB PER TUBE SCH (09:00)
[2021-03-25] MEDS ORDERED: Acetaminophen 500 MG TAB PER TUBE PRN (14:00)
== END 2021-03-25 00:02 | disposition expired | DRG 659 ==
LOC: EDBD 13:39 → ERS 13:39 → CCU 15:59 → T4-B 03-19 02:06
PROVIDERS: ADMIT Internal Medicine; ATTEND Family Medicine
PROC: 06HY33Z Insertion of Infusion Device into Lower Vein, Percutaneous Approach (ICD-10-PCS; principal; 2021-03-14)
PROC: 5A12012 Performance of Cardiac Output, Single, Manual (ICD-10-PCS; 2021-03-14)
PROC: 3E033XZ Introduction of Vasopressor into Peripheral Vein, Percutaneous Approach (ICD-10-PCS; 2021-03-14)
PROC: 0D20XUZ Change Feeding Device in Upper Intestinal Tract, External Approach (ICD-10-PCS; 2021-03-18)
PROC: 5A1945Z Respiratory Ventilation, 24-96 Consecutive Hours (ICD-10-PCS; 2021-03-19)
PROC: 0T778DZ Dilation of Left Ureter with Intraluminal Device, Via Natural or Artificial Opening Endoscopic (ICD-10-PCS; 2021-03-22)
PROC: BT1F1ZZ Fluoroscopy of Left Kidney, Ureter and Bladder using Low Osmolar Contrast (ICD-10-PCS; 2021-03-22)
DX: T83.511A Infection and inflammatory reaction due to indwelling urethral catheter, initial encounter (principal); A41.52 Sepsis due to Pseudomonas; J96.01 Acute respiratory failure with hypoxia; Z66 Do not resuscitate; Z51.5 Encounter for palliative care; J69.0 Pneumonitis due to inhalation of food and vomit; G93.41 Metabolic encephalopathy; R65.21 Severe sepsis with septic shock; J15.212 Pneumonia due to Methicillin resistant Staphylococcus aureus; J81.0 Acute pulmonary edema; I69.354 Hemiplegia and hemiparesis following cerebral infarction affecting left non-dominant side; I50.32 Chronic diastolic (congestive) heart failure; E87.1 Hypo-osmolality and hyponatremia; N13.6 Pyonephrosis; I13.0 Hypertensive heart and chronic kidney disease with heart failure and stage 1 through stage 4 chronic kidney disease, or unspecified chronic kidney disease; N13.8 Other obstructive and reflux uropathy; N17.9 Acute kidney failure, unspecified; R13.10 Dysphagia, unspecified; E03.9 Hypothyroidism, unspecified; J45.909 Unspecified asthma, uncomplicated; F31.9 Bipolar disorder, unspecified; I48.91 Unspecified atrial fibrillation; I46.9 Cardiac arrest, cause unspecified; N31.9 Neuromuscular dysfunction of bladder, unspecified; D53.9 Nutritional anemia, unspecified; G89.29 Other chronic pain; N18.30 Chronic kidney disease, stage 3 unspecified; Z20.822 Contact with and (suspected) exposure to COVID-19; M54.5 Low back pain; E87.6 Hypokalemia; E83.42 Hypomagnesemia; Z88.8 Allergy status to other drugs, medicaments and biological substances; Z86.718 Personal history of other venous thrombosis and embolism; Z90.710 Acquired absence of both cervix and uterus; Z90.49 Acquired absence of other specified parts of digestive tract; Z90.89 Acquired absence of other organs; Z74.01 Bed confinement status; Z93.1 Gastrostomy status; Z98.890 Other specified postprocedural states; Z78.1 Physical restraint status
CPT/HCPCS: 0240U; 36415; 36416; 36430; 36600; 70450; 70496; 70498; 71045; 71275; 74177; 74420; 80048; 80053; 80202; 81001; 81003; 81015; 82533; 82550; 82607; 82728; 82746; 82805; 83540; 83550; 83605; 83735; 83880; 84100; 84145; 84443; 84484; 85025; 85610; 85730; 86140; 86850; 86900; 86901; 87040; 87070; 87077; 87086; 87186; 87205; 93005; 93010; 93306; 94002; 94003; 94640; 94760; 96365; 96366; 96367; 96375; 96376; C2617; J0171; J0278; J0696; J1650; J1815; J1940; J1953; J1956; J2060; J2185; J2250; J2270; J3010; J3370; J3475; J3480; J3490; J7042; J7050; J7070; J7620; P9016; Q9961; Q9967; S0028; U0003; U0005